=== PATIENT | male | born 1995 | race Caucasian/White ===

== ENCOUNTER 2017-03-05 16:43 | Emergency (ER) | payer OTHER ==
--- NOTE | 2017-03-05 17:27 | ERPHSYRPT ---
- History of Present Illness Time Seen by Provider: 03/05/17 17:25 Source: patient Exam Limitations: no limitations Patient Subjective Stated Complaint: pt reports he was climbing through scaffoling-unsure if he hit his head on metal or if metal rings hit hime-states he thinks he passed out-denies numbness or tingling-reports headache Triage Nursing Assessment: pt pale warm et [id number] all questions correctly-pupils responsive-superficial abrasion noted to left cheek no bleeding -pt moving all extremities with ease Physician History: pt reports he was climbing through scaffoling-unsure if he hit his head on metal or if metal rings hit hime-states he thinks he passed out-denies numbness or tingling-reports headache, denies any loss of consciousness Occurred: just prior to arrival Reason for Fall: tripped Injuries/Pain Location: head, face Loss of Consciousness: no loss of consciousness Quality: burning Severity of Pain-Max: mild Severity of Pain-Current: mild Modifying Factors: Improves With: nothing Associated Symptoms (Fall): denies symptoms Allergies/Adverse Reactions: No Known Drug Allergies Allergy (Unverified 03/05/17 16:54) Home Medications: No Home Meds 1 ea UD 03/05/17 [History] Hx Tetanus, Diphtheria Vaccination/Date Given: No Hx Influenza Vaccination/Date Given: No Hx Pneumococcal Vaccination/Date Given: No Immunizations Up to Date: Yes - Review of Systems Constitutional: No Fever, No Chills Eyes: No Symptoms Ears, Nose, & Throat: No Symptoms, Other (left side face pain) Respiratory: No Cough, No Dyspnea Cardiac: No Chest Pain, No Edema, No Syncope Abdominal/Gastrointestinal: No Abdominal Pain, No Nausea, No Vomiting, No Diarrhea Genitourinary Symptoms: No Dysuria Musculoskeletal: No Back Pain, No Neck Pain Skin: No Rash Neurological: No Dizziness, No Focal Weakness, No Sensory Changes Psychological: No Symptoms Endocrine: No Symptoms All Other Systems: Reviewed and Negative - Past Medical History Pertinent Past Medical History: Yes Respiratory History: Asthma - Past Surgical History Past Surgical History: No - Social History Smoking Status: Never smoker Exposure to second hand smoke: No Drug Use: none Patient Lives Alone: No - Nursing Vital Signs Nursing Vital Signs: Initial Vital Signs Temperature 97.9 F Temperature Source Oral Pulse Rate 74 Respiratory Rate 16 Blood Pressure [] 142/76 Pain Intensity 2 - [place] Coma Score Best Eye Response ([place]): (4) open spontaneously Best Verbal Response ([place]): (5) oriented Best Motor Response ([place]): (6) obeys commands [place] Total: 15 - Physical Exam General Appearance: no apparent distress, alert Head Injury: no evidence of injury Eye Exam: PERRL/EOMI ENT Exam: airway nml Neck Exam: normal inspection, No tenderness Respiratory/Chest Exam: normal breath sounds, No chest tenderness, No respiratory distress Cardiovascular Exam: normal heart sounds, regular rate/rhythm Gastrointestinal Exam: soft, No tenderness, No distention, No guarding, No ecchymosis Back Exam: normal inspection, No vertebral tenderness Extremity Exam: normal inspection, normal range of motion, No deformities Neurologic Exam: alert, oriented x 3, cooperative, sensation nml, No motor deficits Skin Exam: normal color, warm, dry SpO2: 98 Oxygen Delivery: Room Air - Course Nursing assessment & vital signs reviewed: Yes - Radiology Exams Facial X-ray Interpretation: Reviewed by me, Negative Ordered Tests: Active Orders 24 hr Category Date Time Status FACIAL BONES (MINIMUM 3 VIEWS) Stat Exams 03/05/17 16:53 Taken HEAD WITHOUT CONTRAST [CT] Stat Exams 03/05/17 17:40 Taken - Progress Progress: improved Progress Note: 03/05/17 17:41 Patient workmen compensation physician Dr. lovelace called and see stated that this was unwitnessed fall and patient was probably unconscious for a few minutes. Considering that we would ordered a CT head, although patient completed neurological exam is unremarkable including [place] Coma Score. Counseled pt/family regarding: diagnosis, need for follow-up, rad results - Departure Time of Disposition: 18:22 Departure Disposition: Home Clinical Impression: Fall on/from scaffolding Qualifiers: Encounter type: initial encounter Qualified Code(s): W12.XXXA - Fall on and from scaffolding, initial encounter Head, face & neck injury Qualifiers: Encounter type: initial encounter Qualified Code(s): S19.9XXA - Unspecified injury of neck, initial encounter Condition: Stable Critical Care Time: Yes Critical Care Time(excluding separately billable procedures): 30-74 minutes Instructions: Closed Head Injury, Concussion Additional Instructions: Please follow-up with your workman compensation physician in next 1-2 days. Take Tylenol 500 mg 4 times a day for pain. Follow the head injury protocol, the instruction given to you. If symptoms get worse, come back to the emergency room. Forms: Work/School Release Form Prescriptions: Naproxen 375 mg [Naprosyn 375 mg] 375 mg PO Q8H #30 tablet
[2017-03-05 18:44] VITALS: O2SAT 98
[2017-03-05 18:54] VITALS: BP 138/68; PULSE 80
--- NOTE | 2017-03-05 22:11 | XRAY ---
Indication: Status post fall. Loss of consciousness. Multiple contiguous axial images obtained through the head without contrast. Comparison: None Normal appearing brain parenchyma, ventricles, and bony calvarium. Visualized paranasal sinuses and mastoid air cells are pneumatized and clear. Impression: Normal CT head without contrast exam. CTDI 68.65
--- NOTE | 2017-03-05 22:13 | XRAY ---
Indication: Left facial injury following fall. Comparison: None 3 views of the facial bones demonstrates right maxillary sinus mucosal thickening without fluid leveling and left maxillary sinus floor polyp/retention cyst. No other bony, articular, or soft tissue abnormalities.
== END 2017-03-05 18:47 | disposition home or self-care (01) ==
LOC: ED 16:43
DX: S19.9XXA Unspecified injury of neck, initial encounter (principal); S00.81XA Abrasion of other part of head, initial encounter; W12.XXXA Fall on and from scaffolding, initial encounter
CPT/HCPCS: 70150; 70450; 99283; 99284